=== PATIENT | male | born 2005 | race Caucasian/White ===

== ENCOUNTER 2023-01-30 12:02 | Day surgery (SDC) | payer OTHER, MEDICAID, SELFPAY ==
[2023-01-30 12:24] VITALS: BP 150/92; PULSE 69; RESP 16; TEMP 36.6; O2SAT 97; BMI 20.5
[2023-01-30] MEDS: LACTATED RINGERS 1,000 ML 100 ML IV (12:24)
--- NOTE | 2023-01-30 12:51 | P.HP_ITS ---
History of Present Illness History of Present Illness Date Patient Seen: 01/30/23 Time Patient Seen: 12:51 Chief complaint: EGD w/poss bx Narrative: Jose is a 18-year-old man who presents with worsening symptoms of gastric reflux. He reports that he is had symptoms for about 2 years and has been on omeprazole for that time frame but his symptoms have worsened in the past year or so. He reports frequent reflux and regurgitation especially night and in the mornings. He has had trouble eating enough and he has lost weight. He has occasional minimal abdominal pain on the right side when he is having reflux episodes. [facility] Medical History (Updated 01/30/23 @ 12:53 by Paolo Ambrosio MD) GERD (gastroesophageal reflux disease) Social History alcohol intake: current Meds Home Medications and Allergies Home Medications Medication Instructions Recorded Confirmed Type omeprazole 20 mg PO DAILY 01/30/23 01/30/23 History Allergies Allergy/AdvReac Type Severity Reaction Status Date / Time amoxicillin Allergy Mild Rash Verified 01/30/23 08:16 Exam Vital Signs (past 8 hours): - 01/30/23 12:24 Temperature 97.9 F Pulse Rate 69 Respiratory Rate 16 Blood Pressure 150/92 H Pulse Oximetry 97 Oxygen Delivery Method Room Air Oxygen Delivery Method Room Air Const General: healthy appearing Other: Abdomen nontender, nondistended No Branch sign Assessment & Plan Assessment and plan (1) GERD (gastroesophageal reflux disease): Status: Acute Plan 18-year-old man with worsening gastroesophageal reflux disease and weight loss. We reviewed the risks and benefits of esophagogastroduodenoscopy and he would like to proceed.
--- NOTE | 2023-01-30 13:38 | PM.OP.EGD ---
Operative Date/Time/Diagnoses Date of procedure: 01/30/23 Time of procedure: 13:38 Pre-op diagnosis: Gastric reflux Post-op diagnosis: same Procedure & Clinicians Study performed: Esophagogastroduodenoscopy Same procedure as scheduled: Yes Surgeon: Poalo Ambrosio Procedure Notes Procedure in detail: Surgeon: Paolo Ambrosio MD Anesthesia: Arslan Freitas CRNA A timeout was performed. A bite blocked was placed. The patient was positioned in the left lateral decubitus position. Anesthesia was administered. The endoscope was inserted through the bite block and passed through the esophagus and stomach and into the duodenum. The duodenal mucosa appeared normal. The scope was withdrawn into the duodenal bulb and no abnormalities were seen. The scope was withdrawn into the stomach. No abnormalities were seen. The rest of the stomach was normal. The scope was retroflexed and a small hiatal hernia was noted. The scope was withdrawn into the esophagus and no other abnormalities were seen. The remainder of the esophagus was normal. The scope was withdrawn. The patient was awakened and brought to recovery. Sedation time: 9 minutes Findings: Small hiatal hernia Post-procedure Disposition: PACU
[2023-01-30 13:49] VITALS: BP 106/67; PULSE 77; RESP 16; TEMP 36.7; O2SAT 98
[2023-01-30 13:54] VITALS: BP 110/78; PULSE 107; RESP 16; TEMP 36.8; O2SAT 98
[2023-01-30 14:00] VITALS: BP 124/77; PULSE 78; RESP 16; O2SAT 100
[2023-01-30 14:05] VITALS: BP 112/70; PULSE 90; RESP 16; O2SAT 99
[2023-01-30 14:20] VITALS: BP 122/70; PULSE 88; RESP 16; O2SAT 98
== END 2023-01-30 14:36 | disposition home or self-care (01) ==
PROVIDERS: Referring Provider Surgery; Visit Provider Surgery
PROC: 0DJ08ZZ Inspection of Upper Intestinal Tract, Via Natural or Artificial Opening Endoscopic (ICD-10-PCS; CPT 43235; principal; 2023-01-30 13:15)
DX: K21.9 Gastro-esophageal reflux disease without esophagitis (principal); K44.9 Diaphragmatic hernia without obstruction or gangrene
CPT/HCPCS: 43235

== ENCOUNTER → 2023-02-12 14:55 | Outpatient (CLI) | payer OTHER, MEDICAID, SELFPAY ==
[2023-02-12 16:29] LABS: Add Manual Diff / Slide Review NO; Basophils Absolute Auto 100 /uL (0-100); Basophils Percent Auto 0.9 % (0-2); Eosinophils Absolute Auto 300 /uL (0-450); Eosinophils Percent Auto 3.2 % (2-4); Hematocrit 47.3 % (41-53); Hemoglobin 16.1 g/dL (13.5-17.5); Lymphocytes Absolute Auto 1700 /uL (1100-4500); Lymphocytes Percent Auto 21.7 % (25-40); Mean Corpuscular HGB Conc 34.1 % (30-36); Mean Corpuscular Hemoglobin 30.4 PG (26-34); Mean Corpuscular Volume 89.2 fL (80-100); Monocytes Absolute Auto 500 /uL (0-900); Monocytes Percent Auto 6.8 % (3-14); Neutrophils Absolute Auto 5300 /uL (1500-7000); Neutrophils Percent Auto 67.4 % (50-75); Platelet Count 293 X10^3/uL (150-400); Red Cell Distribution Width 13.7 % (11.6-14.8); White Blood Cell Count 7.9 X10^3/uL (4.5-11.0)
[2023-02-12 16:57] LABS: Alanine Aminotransferase 22 IU/L (<50); Albumin 4.7 g/dL (3.5-5.0); Albumin Globulin Ratio 1.3 (1.0-2.8); Alkaline Phosphatase 78 U/L (38-126); BUN Creatinine Ratio 12.1 (6-22); Bilirubin Total 0.8 mg/dL (0.2-1.3); Blood Urea Nitrogen 12 mg/dL (9-20); Calcium 9.8 mg/dL (8.4-10.2); Carbon Dioxide 28 mmol/L (22-32); Chloride 98 mmol/L (98-107); Estimated Glomerular Filt Rate > 60 mL/min (>60); Globulin 3.6 g/dL (1.7-4.1); Glucose 83 mg/dL (70-100); HEMOLYSIS < 15 (0-50); Lipase 56 U/L (23-300); Potassium 4.7 mmol/L (3.4-5.1); Sodium 137 mmol/L (137-145); Total Protein 8.3 g/dL (6.3-8.2)
[2023-02-12 17:32] LABS: Thyroid Stimulating Hormone 2.32 uIU/mL (0.47-4.68)
[2023-02-14 15:58] LABS: Aspartate Aminotransferase 30 IU/L (17-59)
== END ==
PROVIDERS: Referring Provider Surgery; Visit Provider Surgery
DX: K21.9 Gastro-esophageal reflux disease without esophagitis (principal)
CPT/HCPCS: 36415; 80053; 83690; 84443; 85025; 99213